=== PATIENT | male | born 1985 | race African-American/Black ===

== ENCOUNTER 2020-11-29 11:23 | Emergency (ER) | payer OTHER ==
[2020-11-29 12:05] LABS: BASOPHIL 0.4 % (0-2); EOSINOPHIL 0.4 % (0-5); HCT 46.8 % (42.0-52.0); HGB 15.8 g/dl (13.2-18.0); MCH 28.4 pg (25.0-31.0); MCHC 33.8 g/dL (32.0-36.0); MONOCYTE 8.2 % (0-12); NEUTROPHIL 60.6 % (41-80); NRBC 0; PLT 163 K/uL (150-400); RBC 5.57 M/uL (4.70-6.00); RDW 13.7 % (11.5-14.0); WBC 5.3 K/uL (4.0-10.5)
[2020-11-29 12:26] LABS: BUN/CREAT RATIO (CALC) 10.9 RATIO; CREATININE 0.92 mg/dL (0.67-1.17)
[2020-11-29] MEDS ORDERED: ZPAK PO (14:35)
[2020-11-29] MEDS ORDERED: MEDROL 4MG DOSEP4 MG PO (14:35)
== END 2020-11-29 14:56 | disposition home or self-care (01) ==
LOC: FER 11:23
PROVIDERS: Emergency Medicine
DX: U07.1 COVID-19 (principal); J12.82 Pneumonia due to coronavirus disease 2019; I10 Essential (primary) hypertension; F17.290 Nicotine dependence, other tobacco product, uncomplicated; Z88.0 Allergy status to penicillin
CPT/HCPCS: 36415; 71275; 80048; 85025; J7030; Q9967

== ENCOUNTER 2021-04-19 19:38 | Emergency (ER) | payer OTHER ==
[~2021-04-19 19:38] MED LIST: MEDROL 4MG DOSEP4 MG PO; ZPAK PO
[2021-04-20] MEDS ORDERED: KEFLEX250 MG PO (00:27)
[2021-04-20] MEDS ORDERED: BACTRIM DS TAB1 EACH PO (00:27)
== END 2021-04-20 00:47 | disposition home or self-care (01) ==
LOC: FER 19:38
DX: L08.9 Local infection of the skin and subcutaneous tissue, unspecified (principal); I10 Essential (primary) hypertension; F17.290 Nicotine dependence, other tobacco product, uncomplicated; Z88.0 Allergy status to penicillin; Z79.899 Other long term (current) drug therapy
CPT/HCPCS: 99282; J0696

== ENCOUNTER 2021-07-17 19:55 | Emergency (ER) | payer OTHER ==
[~2021-07-17 19:55] MED LIST changes: +BACTRIM DS TAB1 EACH PO; +KEFLEX250 MG PO
== END 2021-07-17 22:28 | disposition home or self-care (01) ==
LOC: FER 19:55
DX: S86.002A Unspecified injury of left Achilles tendon, initial encounter (principal); I10 Essential (primary) hypertension; F17.290 Nicotine dependence, other tobacco product, uncomplicated; Z88.0 Allergy status to penicillin
CPT/HCPCS: 73600

== ENCOUNTER → 2021-08-18 | Day surgery (SDC) | payer OTHER ==
[~2021-08-18] VITALS: Ht 185.4 cm; Wt 186.9 kg
[~2021-08-18] MED LIST changes: +LISINOPRIL20 MG PO
[2021-08-18 10:23] LABS: HCT 45.1 % (42.0-52.0); MCHC 33.3 g/dL (32.0-36.0); MCV 84.1 fL (78.0-100.0); MPV 10.9 fL (6.0-9.5); RBC 5.36 M/uL (4.70-6.00); RDW 13.7 % (11.5-14.0); WBC 7.2 K/uL (4.0-10.5)
[2021-08-18 10:49] LABS: ALBUMIN 3.8 g/dL (3.4-5.0); BILIRUBIN - TOTAL 0.3 mg/dL (0.2-1.0); BUN/CREAT RATIO (CALC) 12.9 RATIO; CREATININE 0.93 mg/dL (0.67-1.17); GLOBULIN (CALCULATION) 4.4 g/dL; POTASSIUM 4.2 mmol/L (3.5-5.1); TOTAL PROTEIN 8.2 g/dL (6.4-8.2)
== END | disposition home or self-care (01) ==
LOC: FAS 09:41
PROVIDERS: Orthopaedic Surgery
DX: S86.012A Strain of left Achilles tendon, initial encounter (principal); X58.XXXA Exposure to other specified factors, initial encounter
CPT/HCPCS: 36415; 71045; 80053; 93005; J2250; J2704; J2795; J3010; J7120